=== PATIENT | male | born 1980 ===

== ENCOUNTER 2023-09-23 00:02 | Emergency (ER) | payer BC, SELFPAY ==
[2023-09-23] MEDS ORDERED: diphenhydrAMINE 50 MG/ML VIAL ONE (00:30)
[2023-09-23] MEDS ORDERED: Ketorolac Tromethamine 30 MG (1 mL) VIAL ONE ×2 (00:30→00:31)
[2023-09-23] MEDS ORDERED: Metoclopramide HCl 10 MG (2 mL) VIAL ONE (00:30)
[2023-09-23] MEDS ORDERED: methylPREDNISolone Sod Succ/PF 125 MG/2 ML VIAL ONE (00:31)
[2023-09-23 01:11] LABS: #Basophils 0.05 10x3/uL (0.0-0.2); %Basophils 0.9 % (0.0-1.0); %Eosinophils 2.8 % (0.0-10.0); %Lymphocytes 35.1 % (21.0-51.0); %Monocytes 9.8 % (0.0-10.0); %Neutrophils 51.2 % (42.0-75.0); Hematocrit 42.8 % (42.0-52.0); Hemoglobin 13.2 g/dL (14.0-18.0); Mean Corpuscular HGB CONC 30.8 g/dL (32.0-36.0); Mean Corpuscular Hemoglobin 26.7 pg (27.0-31.0); Mean Corpuscular Volume 86.6 fL (78.0-98.0); Mean Platelet Volume 10.3 fL (7.4-10.4); Platelet Count 297 10x3/uL (130-400); RBC Distribution Width 14.4 % (11.5-14.5); Red Blood Cell (RBC) Count 4.94 mill/uL (4.70-6.10)
[2023-09-23 01:14] LABS: ALT (SGPT) 65 U/L (8-55); AST (SGOT) 45 U/L (5-34); Albumin 4.2 g/dL (3.5-5.0); Alkaline Phosphatase 74 U/L (40-110); Anion Gap 11 mmol/L (10-20); BUN (Urea Nitrogen) 11 mg/dL (8.9-20.6); Bilirubin, Total 0.6 mg/dL (0.2-1.2); Calc. Creatinine Clearance 0 mL/min (70-130); Calcium 9.8 mg/dL (7.8-10.44); Carbon Dioxide 31 mmol/L (22-29); Chloride 102 mmol/L (98-107); Estimated GFR 112; Globulin 3.1 g/dL (2.4-3.5); Glucose 99 mg/dL (70-105); Potassium 4.2 mmol/L (3.5-5.1); Protein, Total 7.3 g/dL (6.0-8.3); Sodium 140 mmol/L (136-145)
== END 2023-09-23 03:26 | disposition home or self-care (01) ==
LOC: ERS 00:02
DX: R51.9 Headache, unspecified (principal); I10 Essential (primary) hypertension; F17.290 Nicotine dependence, other tobacco product, uncomplicated
CPT/HCPCS: 36415; 70450; 80053; 85025; 96365; 96375; J1200; J1885; J2765; J2930